=== PATIENT | male | born 1995 | race Caucasian/White ===

== ENCOUNTER 2016-10-07 20:03 | Emergency (ER) | payer OTHER ==
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
== END 2016-10-07 20:57 | disposition left against medical advice (07) ==
LOC: ER 20:03
DX: R51 Headache (principal)
CPT/HCPCS: Z7502